=== PATIENT | female | born 1990 | race African-American/Black ===

== ENCOUNTER 2018-02-21 21:30 | Emergency (ER) | payer MEDICAID ==
[~2018-02-21] VITALS: Ht 165.1 cm; Wt 55.0 kg
[~2018-02-21 21:30] MED LIST: CLIN1CAP5 PO; IBUP600 PO
[2018-02-21 21:42] VITALS: BP 121/61; PULSE 68; RESP 18; TEMP 98.4; O2SAT 99
--- NOTE | 2018-02-21 22:39 | PD ---
HPI Chief Complaint: Oral / Dental Pain or Problem Time Seen by Provider: 22:31 Travel History International Travel<30 days: No Contact w/Intl Traveler<30days: No Traveled to known affect area: No History of Present Illness HPI 27-year-old black female presents emergency department we will complains of right upper maxilla pain 3 days. Patient states that the pain radiates up into her ears. She has also noted some swollen glands in her neck. Pain is moderate. No alleviating factors. No exacerbating factors. Patient is concerned that she may have cancer. She denies any fever chills. No runny nose , cough or congestion. History Past Medical Histgory Medical History: Denies Significant Hx Tetanus Vaccination: Unknown LMP: 01/27/2018 Past Surgical History Surgical History: No Previous Surgery Social History Alcohol Use: Yes (socially) Tobacco Use: Yes Allergies-Medications (Allergen,Severity, Reaction): Coded Allergies: No Known Allergies (Verified Adverse Reaction, Unknown, 02/21/18) Reported Meds & Prescriptions Reported Meds & Active Scripts Active Clindamycin Hcl (Clindamycin HCl) 150 Mg Cap 300 Mg PO Q8H 7 Days Motrin 600 Mg Tab (Ibuprofen) 600 Mg Tab 600 Mg PO Q6H PRN Review of Systems General / Constitutional: No: Fever, Chills Eyes: No: Visual changes HENT: Positive: Dental Difficulties, Earache, No: Headaches, Congestion, Gingival Bleeding, Ear Discharge Cardiovascular: No: Chest Pain or Discomfort Respiratory: No: Shortness of Breath Gastrointestinal: No: Abdominal Pain Genitourinary: No: Dysuria Musculoskeletal: No: Pain Skin: No Rash Neurologic: No: Weakness Psychiatric: No: Depression Endocrine: No: Polydipsia Hematologic/Lymphatic: No: Easy Bruising Physical Exam Narrative GENERAL: Well-developed, well-nourished in no acute distress. Nontoxic appearing. HEAD: Normocephalic, atraumatic. EYES: Pupils equal round and reactive. Extraocular motions intact. No scleral icterus. No injection or drainage. ENT: TMs clear without erythema. The external auditory canals clear. Nose: clear . Posterior pharynx is pink and moist. No tonsillar edema or exudate. Uvula midline. Airway patent. Patient has a few dental caries. No obvious dental abscess. NECK: Trachea midline.Supple, nontender, moves head freely. No central bony tenderness or spasm. CARDIOVASCULAR: Regular rate and rhythm without murmurs, gallops, or rubs. RESPIRATORY: Clear to auscultation. Breath sounds equal bilaterally. No wheezes , rales, or rhonchi. GASTROINTESTINAL: Abdomen soft, non-tender, nondistended. No hepato-splenomegaly , or palpable masses. No guarding. EXTREMITIES: No clubbing, cyanosis, or edema. No joint tenderness, effusion, or edema noted. BACK: Nontender without deformity or crepitance. No flank tenderness. Data Data Last Documented VS Vital Signs Date Time Temp Pulse Resp B/P (MAP) Pulse Ox O2 Delivery O2 Flow Rate FiO2 02/21/18 21:42 98.4 68 18 121/61 (81) 99 MDM Medical Screen Exam Complete: Yes Emergency Medical Condition: No Differential Diagnosis MDM: Moderate Differential diagnoses: Dental abscess, dental caries, osteitis, cellulitis Narrative Course A medical screening exam was performed: At the time of evaluation the presenting medical condition was determined not to be of an emergent nature. The patient was given the option of receiving additional care, but declined. Patient was given options for additional community resources from which to obtain care. The Patient Has Been advised to seek medical attention for their presenting complaint. The patient has been advised to return to the ER at any time if an emergent condition develops. Primary Impression: Encounter for medical screening examination Condition: Clinton Nieto February 21, 2018 22:39
== END 2018-02-21 23:10 | disposition left against medical advice (07) ==
LOC: NEPD 21:30
DX: K08.89 Other specified disorders of teeth and supporting structures (principal); Z72.0 Tobacco use
CPT/HCPCS: 99281